=== PATIENT | female | born 1985 | race Caucasian/White ===

== ENCOUNTER 2020-02-10 17:33 | Emergency (ER) | payer OTHER, SELFPAY ==
[2020-02-10 17:35] VITALS: BP 131/96; PULSE 106; RESP 18; TEMP 37.2; O2SAT 99; BMI 31.8
--- NOTE | 2020-02-10 17:51 | EKG12_ITS ---
Test Reason : DIZZINESS Blood Pressure : / mmHG Vent. Rate : 098 BPM Atrial Rate : 098 BPM P-R Int : 160 ms QRS Dur : 082 ms QT Int : 354 ms P-R-T Axes : 066 007 047 degrees QTc Int : 451 ms Normal sinus rhythm Normal ECG Confirmed by GLORIA KAISER, KASH ([id number]), video tape editor FABY JONES ([id number]) on 02/12/2020 9:19:14 AM Referred By: OSMANY Confirmed By:KASH CASTRO MD
--- NOTE | 2020-02-10 18:00 | RAD_ITS ---
STUDY: X-RAY CHEST REASON FOR EXAM: Female, 34 years old. SOB STARTING TODAY. WAS TESTED FOR COVID AND NEGATIVE 2 WEEKS AGO. C/O DIZZINESS. PT USED HOME PULSE OX AND SAID HR WAS 150. DENIES CARDIAC HX -- HX ASTHMA TECHNIQUE: 1 view COMPARISON: None. FINDINGS: The lungs are clear and expanded. There is no demonstrated pleural abnormality. Normal size heart. Normal mediastinum and taco. Normal visualized pulmonary arteries. Normal visualized aortic arch and descending thoracic aorta. Normal visualized thoracic spine. Normal visualized ribs, clavicles, and shoulders. There is no demonstrated abnormality of the visualized soft tissue structures of the upper abdomen. RAD/Chest 1 View (Portable) IMPRESSION: Normal x-ray examination of the chest. Electronically Signed: Coby Tomlin MD at 18:21 EDT , Service support ,
--- NOTE | 2020-02-10 18:01 | ED.VISSUMM ---
- ER Visit Summary Date of Service: 02/10/20 Chief Complaint: Palpitations History of Present Illness: The patient is a 34 F presenting with palpitations. This started earlier today. Patient states she has felt dizzy and lightheaded. She did not pass out. When she started walking her heart rate went to 150. She denies fever. She states 2.5 weeks ago she had a fever and had a questionable exposure to someone who was COVID positive. She tested negative for COVID at that time and has felt well since. Denies travel history. No history of PE/DVT. She has had a mild cough. She has associated shortness of breath and chest tightness with the symptoms. She has intermittent mild headache. Denies other complaints. Physical Examination: Vitals are stable. Patient is afebrile. Alert no acute distress. HEENT exam is unremarkable. Neck is supple. Lungs are clear and equal bilaterally. Heart is regular and tachycardic Abdomen is soft nontender nondistended. Extremities are unremarkable. Skin is warm and dry. No focal neurologic deficit. Anxious Remainder of exam is unremarkable. Emergency Department Course and Treatment: EKG is normal sinus rhythm rate of 98. Chest x-ray shows normal x-ray examination of the chest. CBC, chemistries unremarkable. Troponin is negative. D-dimer negative. Orthostatics negative. TSH is normal. Patient's heart rate has improved. Delta troponin was obtained and is negative. Patient is resting comfortably on reevaluation. She is given Dr. Cannon operator specialist communications for no doctor for follow up. Advised return to the ED for worsening complaints. Disposition: Discharge home Impression: Palpitations This note was generated with [employer] dictation software. It may contain incorrect words, spelling, and punctuation that were not noted in review of the chart prior to signing ED Disposition - Plan for ED Patient: Instructions: ED Palpitations Referrals: Counseling,Center [GROUP OF PHYSICIANS] - Nadir Cannon III, MD [STAFF PHYSICIAN] - Care Physician,No Primary [Primary Care Provider] -
[2020-02-10] MEDS: 0.9% Normal Saline 1,000 ML 1000 ML IV (18:04)
[2020-02-10 18:12] LABS: Absolute Lymphocyte Count 2.48 X10^3/uL (0.83-4.51); Absolute Neutrophil Count 5.7 X10^3/uL (2.0-7.7); Basophil# 0.04 X10^3/uL; Basophil% 0.5 % (0-1); Eosinophil# 0.08 X10^3/uL; Eosinophils% 0.9 % (0-5); Hematocrit 40.8 % (37-47); Hemoglobin 13.8 g/dL (12.0-15.0); Lymphocyte # 2.48 X10^3/ul (4.0); Lymphocyte % 28.2 % (19-41); Mean Corp Hgb Conc 33.8 g/dL (32-36); Mean Corpuscular Hgb 30.3 pg (27.0-32.0); Mean Corpuscular Volume 89.5 fL (81-99); Monocyte% 5.7 % (0-10); NRBC Flagged by Analyzer 0 % (0-5); Neutrophil # 5.65 X10^3/uL (2.7-7.7); Neutrophil % 64.4 % (47-70); Platelet Count 310 K/mm3 (150-450); RBC Distribution Width CV 12.5 % (11.6-14.6); RBC Distribution Width SD 41.3 fl (35.1-43.9); Red Blood Count 4.56 M/mm3 (4.2-5.4); White Blood Count 8.8 K/mm3 (4.4-11.0)
[2020-02-10 18:18] VITALS: BP 124/83; BP 128/99; BP 142/82; PULSE 101; PULSE 107; PULSE 96
[2020-02-10 18:24] LABS: D-Dimer Quantitative (DVT/PE) < 0.27 FEU/ug/m (0.27-0.49)
[2020-02-10 18:35] LABS: Anion Gap 2 (5-15); BUN 9 mg/dL (7-18); BUN/Creat Ratio 9.3 RATIO (10-20); Calcium,Total 8.8 mg/dL (8.5-10.1); Chloride 109 mmol/L (98-107); Creatinine, Serum 0.96 mg/dL (0.55-1.02); EST Glomerular Filtration Rate 70 mL/min (>60); Est Glom Filt Rate - Afr Amer 85 mL/min (>60); Estimated Creatinine Clearance 82.51 ml/min; Glucose 118 mg/dL (74-106); Potassium 3.7 mmol/L (3.5-5.1); Sodium Level 140 mmol/L (136-145)
[2020-02-10 18:43] VITALS: BP 141/84; PULSE 88; RESP 13; O2SAT 98
[2020-02-10 19:00] VITALS: BP 128/83; PULSE 78; RESP 18; O2SAT 98
[2020-02-10 20:00] VITALS: BP 134/92; PULSE 72; RESP 14; O2SAT 97
[2020-02-10 21:00] VITALS: BP 128/90; PULSE 70; RESP 18; O2SAT 99
--- NOTE | 2020-02-10 21:40 | ED.DEP ---
ED Disposition - Plan for ED Patient: Instructions: ED Palpitations Referrals: Care Physician,No Primary [Primary Care Provider] - Nadir Cannon III, MD [STAFF PHYSICIAN] - Counseling,Center [GROUP OF PHYSICIANS] -
== END 2020-02-10 21:46 | disposition home or self-care (01) ==
LOC: ED 18:25
PROVIDERS: Emergency Provider Emergency Medicine
DX: R00.2 Palpitations (principal); Z72.0 Tobacco use
CPT/HCPCS: 71045; 80048; 84443; 84484; 85025; 85379; 93005; 96360; 99285; J7030; A4216